=== PATIENT | male | born 1975 | race Caucasian/White ===

== ENCOUNTER 2018-09-17 06:46 | Emergency (ER) | payer BC, OTHER ==
[2018-09-17 06:52] VITALS: TEMP 98.1
[2018-09-17] MEDS ORDERED: IPRATROPIUM-ALBUTEROL 3 ML NEB INHALATION STA (07:15)
--- NOTE | 2018-09-17 07:21 | ED ---
URI HPI - General Chief Complaint: Upper Respiratory Infection Stated Complaint: SOB Time Seen by Provider: 09/17/18 07:01 Source: patient, RN notes reviewed Mode of arrival: ambulatory Limitations: no limitations - History of Present Illness Initial Comments: 43-year-old presents emergency Department chief complaint of cough and shortness breath. Patient states he notices any increasing cough and slight wheezing last 24 hours. Patient states that he has no history of asthma or COPD. Patient is exposed multiple sick contacts at his job. Patient reports no fever or chills no bodyaches no nasal congestion. Patient has no chest pain. Patient states that symptoms are slightly better at this time some noticeable. - Related Data Home Medications Medication Instructions Recorded Confirmed Lisinopril [Prinivil] 10 mg PO HS 04/08/16 09/17/18 Metoprolol Succinate (ER) [Toprol 25 mg PO DAILY 09/17/18 09/17/18 Xl] Previous Rx's Medication Instructions Recorded Albuterol Sulfate [Proair Hfa] 1 - 2 puff INHALATION Q4HR PRN #1 09/17/18 inhaler Azithromycin [Zithromax Z-pack] 0 mg PO DIRECTED #1 pack 09/17/18 predniSONE 50 mg PO DAILY #5 tab 09/17/18 Allergies Allergy/AdvReac Type Severity Reaction Status Date / Time latex Allergy Rash/Hives Verified 09/17/18 07:26 Penicillins Allergy Unknown Verified 09/17/18 07:25 Review of Systems ROS Statement: Those systems with pertinent positive or pertinent negative responses have been documented in the HPI. ROS Other: All systems not noted in ROS Statement are negative. Past Medical History Past Medical History: Hypertension History of Any Multi-Drug Resistant Organisms: None Reported Past Surgical History: No Surgical Hx Reported Past Psychological History: No Psychological Hx Reported Smoking Status: Never smoker Past Alcohol Use History: Daily Past Drug Use History: None Reported General Exam Limitations: no limitations General appearance: alert, in no apparent distress Head exam: Present: atraumatic, normocephalic, normal inspection Eye exam: Present: normal appearance, PERRL, EOMI. Absent: scleral icterus, conjunctival injection, periorbital swelling ENT exam: Present: normal exam, normal oropharynx, mucous membranes moist Neck exam: Present: normal inspection. Absent: tenderness, meningismus, lymphadenopathy Respiratory exam: Present: wheezes. Absent: normal lung sounds bilaterally, respiratory distress, rales, rhonchi, stridor Cardiovascular Exam: Present: regular rate, normal rhythm, normal heart sounds. Absent: systolic murmur, diastolic murmur, rubs, gallop, clicks Neurological exam: Present: alert, oriented X3, CN II-XII intact Skin exam: Present: warm, dry, intact, normal color. Absent: rash Course Vital Signs 09/17/18 09/17/18 09/17/18 06:49 06:57 07:34 Temperature 98.1 F Pulse Rate 81 78 Respiratory 20 20 Rate Blood Pressure 150/101 O2 Sat by Pulse 98 Oximetry 09/17/18 07:42 Temperature Pulse Rate 82 Respiratory Rate Blood Pressure O2 Sat by Pulse Oximetry Medical Decision Making - Medical Decision Making 43-year-old male presents from for shortness of breath. Patient had chest x-ray which showed possibility of a mass and infiltrate. Patient had CT labwork at this time which shows evidence of lipoma along with acute bronchitis changes on CT. Patient be treated accordingly with antibiotics, steroids and inhaler patient will follow-up with PCP and return for any worsening symptoms - Lab Data Result diagrams: 09/17/18 08:30 09/17/18 08:30 Lab Results 09/17/18 09/17/18 09/17/18 Range/Units 08:30 08:30 08:30 WBC 5.9 (3.8-10.6) k/uL RBC 5.01 (4.30-5.90) m/uL Hgb 14.9 (13.0-17.5) gm/dL Hct 44.5 (39.0-53.0) % MCV 88.8 (80.0-100.0) fL MCH 29.7 (25.0-35.0) pg MCHC 33.5 (31.0-37.0) g/dL RDW 13.4 (11.5-15.5) % Plt Count 219 (150-450) k/uL Neutrophils % 69 % Lymphocytes % 19 % Monocytes % 6 % Eosinophils % 4 % Basophils % 1 % Neutrophils # 4.0 (1.3-7.7) k/uL Lymphocytes # 1.1 (1.0-4.8) k/uL Monocytes # 0.3 (0-1.0) k/uL Eosinophils # 0.3 (0-0.7) k/uL Basophils # 0.0 (0-0.2) k/uL PT 10.1 (9.0-12.0) sec INR 0.9 (<1.2) APTT 25.2 (22.0-30.0) sec Sodium 140 (137-145) mmol/L Potassium 4.4 (3.5-5.1) mmol/L Chloride 109 H (98-107) mmol/L Carbon Dioxide 21 L (22-30) mmol/L Anion Gap 10 mmol/L BUN 14 (9-20) mg/dL Creatinine 0.85 (0.66-1.25) mg/dL Est GFR (CKD-EPI)AfAm >90 (>60 ml/min/1.73 sqM) Est GFR (CKD-EPI)NonAf >90 (>60 ml/min/1.73 sqM) Glucose 114 H (74-99) mg/dL Calcium 9.4 (8.4-10.2) mg/dL Disposition Clinical Impression: Acute bronchitis with bronchospasm Disposition: HOME SELF-CARE Condition: Stable Instructions (If sedation given, give patient instructions): Acute Bronchitis (ED) Additional Instructions: Please return to the Emergency Department if symptoms worsen or any other concerns. Prescriptions: predniSONE 50 mg PO DAILY #5 tab Albuterol Sulfate [Proair Hfa] 1 - 2 puff INHALATION Q4HR PRN #1 inhaler PRN Reason: difficulty in breathing Azithromycin [Zithromax Z-pack] 0 mg PO DIRECTED #1 pack Is patient prescribed a controlled substance at d/c from ED?: No Referrals: Mati Kevin MD [Primary Care Provider] - 1-2 days Time of Disposition: 09:37
--- NOTE | 2018-09-17 07:49 | XR ---
EXAMINATION TYPE: XR chest 2V DATE OF EXAM: 09/17/2018 COMPARISON: NONE TECHNIQUE: PA and lateral views submitted. HISTORY: Cough and pain FINDINGS: No pneumothorax or pleural effusion. Patchy subsegmental changes are seen in the right lower lobe med ially. Infiltrate not excluded. Upper mediastinum is prominent. Subsegmental changes at both lung bas es. No overt failure. Hypertrophic change of the spine. Lateral views demonstrates a 3 mm nodule over lying the thoracic vertebral column. Finding nonspecific. IMPRESSION: 1. Upper soft tissue mediastinal prominence. Recommend CT of the chest. 2. 3 mm pulmonary nodule in the lateral view overlying the vertebral column too small to characterize . 3. Patchy subsegmental consolidation at the medial aspect of the right lung base. Early infiltrate no t excluded.
[2018-09-17 08:52] LABS: Basophils % (A) 1 %; Eosinophils # (A) 0.3 k/uL (0-0.7); Eosinophils % (A) 4 %; HCT 44.5 % (39.0-53.0); HGB 14.9 gm/dL (13.0-17.5); INR 0.9 (<1.2); Lymphocytes # (A) 1.1 k/uL (1.0-4.8); Lymphocytes % (A) 19 %; MCH 29.7 pg (25.0-35.0); MCHC 33.5 g/dL (31.0-37.0); MCV 88.8 fL (80.0-100.0); Mean Platelet Volume 6.8; Monocytes # (A) 0.3 k/uL (0-1.0); Monocytes % (A) 6 %; Neutrophils % (A) 69 %; Partial Thromboplastin Time 25.2 sec (22.0-30.0); Platelet Count 219 k/uL (150-450); Prothrombin Time 10.1 sec (9.0-12.0); RBC 5.01 m/uL (4.30-5.90); RDW 13.4 % (11.5-15.5); WBC 5.9 k/uL (3.8-10.6)
[2018-09-17 09:05] LABS: Anion Gap 10 mmol/L; Blood Urea Nitrogen 14 mg/dL (9-20); Calcium 9.4 mg/dL (8.4-10.2); Carbon Dioxide 21 mmol/L (22-30); Chloride 109 mmol/L (98-107); Glucose 114 mg/dL (74-99); Potassium 4.4 mmol/L (3.5-5.1); Sodium 140 mmol/L (137-145)
--- NOTE | 2018-09-17 09:17 | CT ---
EXAMINATION TYPE: CT chest angio for PE DATE OF EXAM: 09/17/2018 COMPARISON: Radiograph same day HISTORY: 43-year-old male with pain, Shortness of breath, wheezing and cough TECHNIQUE: Contiguous axial scanning of the chest performed with IV Contrast, patient injected with 1 00 mL of Isovue 300. Coronal/sagittal MIP reconstructions performed. CT DLP: 657.3 mGycm Automated exposure control for dose reduction was used. FINDINGS: Heart upper limits of normal in size without pericardial effusion. Aorta normal caliber with variant direct takeoff of the left vertebral artery directly from the aorti c arch. There is prominent mediastinal fat suggesting mediastinal lipomatosis accounting for the widened appe arance of the mediastinum on radiographs. There is a 9 mm borderline sized right infrahilar/bronchial lymph node which is nonspecific, probably reactive/post inflammatory. Otherwise, no thoracic lymphadenopathy seen. There are breathing motion artifacts with satisfactory opacification of the pulmonary arterial system no definite pulmonary embolus is seen. Some strandy atelectasis at the lung bases and mild deep atelectasis. No consolidation or pleural eff usion. Prominent epicardial fat pad at the cardiac apex seems to account for the density on radiograp hs. Visualized upper abdomen shows a hilar splenule in possible underlying fatty infiltration of the live r. Bones: No osseous destructive process. IMPRESSION: 1. MILD RESPIRATORY MOTION ARTIFACT. NO DEFINITE PULMONARY EMBOLUS. 2. MEDIASTINAL LIPOMATOSIS ACCOUNTING FOR THE WIDENED APPEARANCE OF THE MEDIASTINUM ON RADIOGRAPHS. 3. PROMINENT EPICARDIAL FAT PAD ALONG THE CARDIAC APEX ACCOUNTING FOR THE RADIOGRAPHIC DENSITY. 4. MILD BRONCHIAL WALL THICKENING COULD REFLECT BRONCHITIS OR ASTHMA. OTHERWISE, NO ACUTE PULMONARY P ROCESS SEEN.
[2018-09-17 10:02] VITALS: BP 131/98; PULSE 80; RESP 18
== END 2018-09-17 10:02 | disposition home or self-care (01) ==
LOC: EC 06:46
DX: J20.9 Acute bronchitis, unspecified (principal); D17.9 Benign lipomatous neoplasm, unspecified; I10 Essential (primary) hypertension; Z79.899 Other long term (current) drug therapy; Z88.0 Allergy status to penicillin; Z91.040 Latex allergy status
CPT/HCPCS: 36415; 71046; 71275; 80048; 85025; 85610; 85730; 94640; 99285

== ENCOUNTER 2020-08-18 09:41 | Emergency (ER) | payer BC ==
[2020-08-18 09:49] VITALS: RESP 18
[2020-08-18] MEDS ORDERED: BACITRACIN OINT 1 EACH PACKET TOPICAL ONE (10:11)
[2020-08-18] MEDS ORDERED: LIDOCAINE 1% INJ 10MG/ML (20 ML MDV) SQ ONE (10:11)
[2020-08-18] MEDS ORDERED: DIPH,PERTUS(ACELL)TETVAC-LF 0.5 ML VIAL IM ONE (10:39)
--- NOTE | 2020-08-18 11:08 | ED ---
Wound/Laceration HPI - General Chief Complaint: Wound/Laceration Stated Complaint: hand lac Source: patient Mode of arrival: ambulatory Limitations: no limitations - History of Present Illness Initial Comments: 45 -year-old male patient presents to the emergency department today for evaluation of laceration to the left thumb and palm of the left hand. Patient states that he was walking with a glass bolus and when he tripped and fell. States about elbow causing a laceration. Denies hitting his head or losing consciousness with the fall. Denies any neck or back pain. Denies numbness or tingling to the hand. Denies any concern for bony injury. His insurance last tetanus vaccine was given. Patient denies any headache, neck pain, back pain, chest pain, shortness of breath, dizziness, weakness, abdominal pain, nausea, vomiting, or difficulties with bowel movements or urination. - Related Data Home Medications Medication Instructions Recorded Confirmed Lisinopril [Prinivil] 10 mg PO DAILY 04/08/16 08/18/20 Metoprolol Succinate (ER) [Toprol 25 mg PO HS 09/17/18 08/18/20 Xl] Allergies Allergy/AdvReac Type Severity Reaction Status Date / Time latex Allergy Rash/Hives Verified 08/18/20 10:18 Penicillins Allergy Unknown Verified 08/18/20 10:18 Review of Systems ROS Statement: Those systems with pertinent positive or pertinent negative responses have been documented in the HPI. ROS Other: All systems not noted in ROS Statement are negative. Past Medical History Past Medical History: Hypertension History of Any Multi-Drug Resistant Organisms: None Reported Past Surgical History: No Surgical Hx Reported Past Psychological History: No Psychological Hx Reported Smoking Status: Never smoker Past Alcohol Use History: Daily Past Drug Use History: None Reported General Exam Limitations: no limitations General appearance: alert, in no apparent distress, other (This is a well developed, well nourished adult male patient in no acute distress. Vital signs upon presentation are temperature 98.5, pulse 84, resp 18, blood pressure 170/104, pulse ox 100% on room air.) Respiratory exam: Present: normal lung sounds bilaterally. Absent: respiratory distress, wheezes, rales, rhonchi, stridor Cardiovascular Exam: Present: regular rate, normal rhythm, normal heart sounds. Absent: systolic murmur, diastolic murmur, rubs, gallop, clicks Extremities exam: Present: full ROM, normal capillary refill, other (There is 7cm laceration noted to the left thumb, active bleeding noted. 2cm laceration to the hypothenar eminence of the left palm. Skin is otherwise pink, warm, dry. Patient exhibits full range of motion with without resistance. Radial pulses 2+ and equal bilaterally.). Absent: normal inspection, tenderness, pedal edema, joint swelling, calf tenderness Neurological exam: Present: alert, oriented X3, CN II-XII intact Psychiatric exam: Present: normal affect, normal mood Skin exam: Present: warm, dry, intact, normal color. Absent: rash Course Vital Signs 08/18/20 09:42 Temperature 98.5 F Pulse Rate 84 Respiratory 18 Rate Blood Pressure 170/104 O2 Sat by Pulse 100 Oximetry Procedures - Laceration Laceration #1 Consent Obtained: verbal consent Indication: laceration Site: hand (left thumb) Size (cm): 7 Description: linear Depth: simple, single layer Anesthetic Used: lidocaine 1% Anesthesia Technique: local infiltration Amount (mls): 4 Pre-repair: wound explored, irrigated extensively Type of Sutures: nylon Size of Sutures: 5-0 Number of Sutures: 9 Patient Tolerated Procedure: well, no complications Laceration #2 Consent Obtained: verbal consent Indication: laceration Site: hand (left palm) Size (cm): 2 Depth: simple, single layer Anesthesia Technique: local infiltration Amount (mls): 2 Pre-repair: irrigated extensively Type of Sutures: nylon Size of Sutures: 5-0 Number of Sutures: 2 Technique: simple, interrupted Patient Tolerated Procedure: well, no complications Medical Decision Making - Medical Decision Making 45 year-old male patient presented to the emergency department today for evaluation of left palm and left thumb laceration. Physical examination did reveal 7 cm laceration to the left thumb and a 2 cm laceration to the left palm. There is active bleeding noted. Wounds were cleansed and inspected and no signs of foreign body. Patient was given tetanus vaccine. Laceration was repaired as documented. We discharged from the primary care physician for recheck in 1-2 days. He is instructed to return in 7 days to have the stitches removed. She can regarding wound care and signs or symptoms of infection. Return parameters were discussed in detail. He verbalizes understanding and agrees with this plan. Case discussed with my attending Dr. Lugo. Disposition Clinical Impression: Laceration of left thumb, Laceration of left hand Disposition: HOME SELF-CARE Condition: Good Instructions (If sedation given, give patient instructions): Care For Your Stitches (ED), Laceration (ED) Additional Instructions: Keep wound clean and dry. Cleanse twice daily with warm water and antibacterial soap. Monitor for signs or symptoms of infection including but not limited to redness, swelling, drainage of pus, fever, or chills. Return to the emergency department for any new, worsening, or concerning symptoms. Is patient prescribed a controlled substance at d/c from ED?: No Referrals: Mati Kevin MD [Primary Care Provider] - 1-2 days Time of Disposition: 11:08
[2020-08-18 11:27] VITALS: BP 139/88; PULSE 76; TEMP 97.6
== END 2020-08-18 11:27 | disposition home or self-care (01) ==
LOC: EC 09:41
DX: S61.012A Laceration without foreign body of left thumb without damage to nail, initial encounter (principal); Z23 Encounter for immunization; I10 Essential (primary) hypertension; Z79.899 Other long term (current) drug therapy; Z88.0 Allergy status to penicillin; W01.0XXA Fall on same level from slipping, tripping and stumbling without subsequent striking against object, initial encounter
CPT/HCPCS: 90715; 99283; 12004; 90471; J2001

== ENCOUNTER → 2021-07-06 | Outpatient (CLI) | payer BC ==
--- NOTE | 2021-07-06 13:01 | US ---
EXAMINATION TYPE: US thyroid st tissue head/neck DATE OF EXAM: 07/06/2021 COMPARISON: NONE CLINICAL HISTORY: R22.0 SWELLING,MASS. neck swelling GLAND SIZE: Right Lobe: 4.9 x 1.7 x 2.5 cm Overall Parenchyma: homogenous Left Lobe: 4.6 x 1.6 x 2.0 cm Overall Parenchyma: homogeneous Isthmus Thickness: 0.5 cm NODULES RIGHT: # of nodules measured on right: 0 LEFT: # of nodules measured on left: 0 ISTHMUS: # of nodules measured in the isthmus: 0 Bilateral neck scanned, no evidence of lymphadenopathy. IMPRESSION: 1. Normal-appearing thyroid ultrasound.
== END | disposition home or self-care (01) ==
LOC: RADUSWWP 12:26
PROVIDERS: ATTEND Internal Medicine
DX: R22.1 Localized swelling, mass and lump, neck (principal)
CPT/HCPCS: 76536

== ENCOUNTER 2021-09-03 18:51 | Emergency (ER) | payer BC ==
[2021-09-03 20:28] LABS: ALT 45 U/L (4-49); AST 39 U/L (17-59); African American GFR (CKD) >90 (>60 ml/min/1.73 sqM); Albumin 4.6 g/dL (3.5-5.0); Alkaline Phosphatase 59 U/L (38-126); Anion Gap 8 mmol/L; Basophils # (A) 0.1 k/uL (0-0.2); Basophils % (A) 1 %; Blood Urea Nitrogen 20 mg/dL (9-20); Calcium 9.2 mg/dL (8.4-10.2); Carbon Dioxide 20 mmol/L (22-30); Chloride 108 mmol/L (98-107); Eosinophils # (A) 0.1 k/uL (0-0.7); Eosinophils % (A) 1 %; Glucose 126 mg/dL (74-99); Lymphocytes # (A) 1.3 k/uL (1.0-4.8); Lymphocytes % (A) 15 %; MCH 31.4 pg (25.0-35.0); MCHC 34.1 g/dL (31.0-37.0); MCV 92.1 fL (80.0-100.0); Mean Platelet Volume 6.9; Monocytes # (A) 0.6 k/uL (0-1.0); Monocytes % (A) 7 %; Neutrophils # (A) 6.2 k/uL (1.3-7.7); Neutrophils % (A) 74 %; Non-African American GFR(CKD) >90 (>60 ml/min/1.73 sqM); Platelet Count 225 k/uL (150-450); Potassium 4.3 mmol/L (3.5-5.1); RDW 14.1 % (11.5-15.5); Sodium 136 mmol/L (137-145); Total Bilirubin 0.6 mg/dL (0.2-1.3); Total Protein 7.6 g/dL (6.3-8.2); WBC 8.5 k/uL (3.8-10.6)
[2021-09-03 20:34] LABS: INR 0.9 (<1.2); Partial Thromboplastin Time 24.5 sec (22.0-30.0); Prothrombin Time 10.2 sec (9.0-12.0)
--- NOTE | 2021-09-03 20:41 | XR ---
EXAMINATION TYPE: XR chest 2V DATE OF EXAM: 09/03/2021 8:13 PM COMPARISON:Chest radiographs from 09/17/2018 TECHNIQUE: XR chest 2V Frontal and lateral views of the chest. CLINICAL INDICATION:Male, 46 years old with history of difficulty breathing; FINDINGS: Lungs/Pleura: There is no evidence of pleural effusion, focal consolidation, or pneumothorax. Pulmonary vascularity: Unremarkable. Heart/mediastinum: Cardiomediastinal silhouette is unremarkable. Musculoskeletal: No acute osseous pathology. IMPRESSION: No acute cardiopulmonary disease/process.
--- NOTE | 2021-09-03 21:11 | ED ---
General Adult HPI - General Chief complaint: Shortness of Breath Stated complaint: QUINTIN/Dizziness Time Seen by Provider: 09/03/21 21:05 Source: patient Mode of arrival: ambulatory Limitations: no limitations - History of Present Illness Initial comments: Dictation was produced using [employer] dictation software. please excuse any grammatical, word or spelling errors. Chief Complaint: 46-year-old male presents to emergency department for episode of dizziness History of Present Illness: 46-year-old male who has past medical history of hypertension. States he's had 2 episodes of dizziness that lasted for a couple minutes. He states today he was at work when he began experiencing this. Satting come to the emergency department to be evaluated. No associated palpitations, shortness of breath. He has no pain complaints. Denies any numbness and paresthesias to the arms or legs. Since being in the emergency room is been asymptomatic. Patient does have good care with his private care doctor and follow-up. He does have an appointment in a couple weeks. The ROS documented in this emergency department record has been reviewed and confirmed by me. Those systems with pertinent positive or negative responses have been documented in the HPI. All other systems are other negative and/or noncontributory. PHYSICAL EXAM: General Impression: Alert and oriented x3, not in acute distress HEENT: Normocephalic atraumatic, extra-ocular movements intact, pupils equal and reactive to light bilaterally, mucous membranes moist. Cardiovascular: Heart regular rate and rhythm Chest: Able to complete full sentences, no retractions, no tachypnea Abdomen: abdomen soft, non-tender, non-distended, no organomegaly Musculoskeletal: Pulses present and equal in all extremities, no peripheral edema Motor: no focal deficits noted Neurological: CN II-XII grossly intact, no focal motor or sensory deficits noted Skin: Intact with no visualized rashes Psych: Normal affect and mood ED course: 46-year-old male presents emergency department for episode of dizziness. He is a symptomatically at the bedside. Vital signs are stable. EKG is unremarkable. Laboratory evaluation is unremarkable. Patient monitored in the emergency department for approximately 2 hours and 20 minutes. He is evaluated at the bedside at 9:10 PM finally stable medical condition. Patient discharged advised follow-up with primary care doctor. Return precautions discussed. EKG interpretation: Ventricular rate gait, sinus rhythm,. 154, QTC 2, QTc 386. No [place] prolongation, no QTC prolongation, no ST or T-wave changes noted. Overall, this EKG is unremarkable - Related Data Home Medications Medication Instructions Recorded Confirmed Lisinopril [Prinivil] 10 mg PO DAILY 04/08/16 08/18/20 Metoprolol Succinate (ER) [Toprol 25 mg PO HS 09/17/18 08/18/20 Xl] Allergies Allergy/AdvReac Type Severity Reaction Status Date / Time latex Allergy Rash/Hives Verified 09/03/21 19:33 Penicillins Allergy Unknown Verified 09/03/21 19:33 Review of Systems ROS Statement: Those systems with pertinent positive or pertinent negative responses have been documented in the HPI. ROS Other: All systems not noted in ROS Statement are negative. Past Medical History Past Medical History: Hypertension History of Any Multi-Drug Resistant Organisms: None Reported Past Surgical History: No Surgical Hx Reported Past Psychological History: No Psychological Hx Reported Smoking Status: Never smoker Past Alcohol Use History: Daily Past Drug Use History: None Reported General Exam Limitations: no limitations Course Vital Signs 09/03/21 19:28 Pulse Rate 94 Respiratory 18 Rate Blood Pressure 123/78 O2 Sat by Pulse 100 Oximetry Medical Decision Making - Lab Data Result diagrams: 09/03/21 20:06 09/03/21 20:06 Lab Results 09/03/21 09/03/21 09/03/21 Range/Units 20:06 20:06 20:06 WBC 8.5 (3.8-10.6) k/uL RBC 5.10 (4.30-5.90) m/uL Hgb 16.0 (13.0-17.5) gm/dL Hct 47.0 (39.0-53.0) % MCV 92.1 (80.0-100.0) fL MCH 31.4 (25.0-35.0) pg MCHC 34.1 (31.0-37.0) g/dL RDW 14.1 (11.5-15.5) % Plt Count 225 (150-450) k/uL MPV 6.9 Neutrophils % 74 % Lymphocytes % 15 % Monocytes % 7 % Eosinophils % 1 % Basophils % 1 % Neutrophils # 6.2 (1.3-7.7) k/uL Lymphocytes # 1.3 (1.0-4.8) k/uL Monocytes # 0.6 (0-1.0) k/uL Eosinophils # 0.1 (0-0.7) k/uL Basophils # 0.1 (0-0.2) k/uL PT 10.2 (9.0-12.0) sec INR 0.9 (<1.2) APTT 24.5 (22.0-30.0) sec Sodium 136 L (137-145) mmol/L Potassium 4.3 (3.5-5.1) mmol/L Chloride 108 H (98-107) mmol/L Carbon Dioxide 20 L (22-30) mmol/L Anion Gap 8 mmol/L BUN 20 (9-20) mg/dL Creatinine 0.88 (0.66-1.25) mg/dL Est GFR (CKD-EPI)AfAm >90 (>60 ml/min/1.73 sqM) Est GFR (CKD-EPI)NonAf >90 (>60 ml/min/1.73 sqM) Glucose 126 H (74-99) mg/dL Calcium 9.2 (8.4-10.2) mg/dL Total Bilirubin 0.6 (0.2-1.3) mg/dL AST 39 (17-59) U/L ALT 45 (4-49) U/L Alkaline Phosphatase 59 (38-126) U/L Troponin I (0.000-0.034) ng/mL Total Protein 7.6 (6.3-8.2) g/dL Albumin 4.6 (3.5-5.0) g/dL 09/03/21 Range/Units 20:06 WBC (3.8-10.6) k/uL RBC (4.30-5.90) m/uL Hgb (13.0-17.5) gm/dL Hct (39.0-53.0) % MCV (80.0-100.0) fL MCH (25.0-35.0) pg MCHC (31.0-37.0) g/dL RDW (11.5-15.5) % Plt Count (150-450) k/uL MPV Neutrophils % % Lymphocytes % % Monocytes % % Eosinophils % % Basophils % % Neutrophils # (1.3-7.7) k/uL Lymphocytes # (1.0-4.8) k/uL Monocytes # (0-1.0) k/uL Eosinophils # (0-0.7) k/uL Basophils # (0-0.2) k/uL PT (9.0-12.0) sec INR (<1.2) APTT (22.0-30.0) sec Sodium (137-145) mmol/L Potassium (3.5-5.1) mmol/L Chloride (98-107) mmol/L Carbon Dioxide (22-30) mmol/L Anion Gap mmol/L BUN (9-20) mg/dL Creatinine (0.66-1.25) mg/dL Est GFR (CKD-EPI)AfAm (>60 ml/min/1.73 sqM) Est GFR (CKD-EPI)NonAf (>60 ml/min/1.73 sqM) Glucose (74-99) mg/dL Calcium (8.4-10.2) mg/dL Total Bilirubin (0.2-1.3) mg/dL AST (17-59) U/L ALT (4-49) U/L Alkaline Phosphatase (38-126) U/L Troponin I <0.012 (0.000-0.034) ng/mL Total Protein (6.3-8.2) g/dL Albumin (3.5-5.0) g/dL Disposition Clinical Impression: Dizziness Disposition: HOME SELF-CARE Condition: Good Instructions (If sedation given, give patient instructions): Dizziness (ED) Is patient prescribed a controlled substance at d/c from ED?: No Referrals: Mati Kevin MD [Primary Care Provider] - 1-2 days
[2021-09-03 21:24] VITALS: BP 142/85; PULSE 77; RESP 20; TEMP 98.4
== END 2021-09-03 21:27 | disposition home or self-care (01) ==
LOC: EC 18:51
DX: R42 Dizziness and giddiness (principal); I10 Essential (primary) hypertension; Z88.0 Allergy status to penicillin; Z91.040 Latex allergy status
CPT/HCPCS: 36415; 71046; 80053; 84484; 85025; 85610; 85730; 99285

== ENCOUNTER 2023-10-16 10:44 | Day surgery (SDC) | payer BC ==
[2023-10-15 08:31] VITALS: BMI 36.0
[2023-10-16] MEDS: LACTATED RINGERS 1,000 ML IV SCH (11:04)
[2023-10-16] MEDS ORDERED: PROPOFOL 10 MG/ML 20 ML VIAL IV ONE (11:18)
[2023-10-16] MEDS ORDERED: LIDOCAINE 1% INJ 10MG/ML (20 ML MDV) ONE (11:18)
--- NOTE | 2023-10-16 11:22 | P.GSHP ---
History of Present Illness H&P Date: 10/16/23 Chief Complaint: Colon cancer screening 48-year-old male here for colonoscopy. He has not had one previously. No bowel complaints. No family history of colon cancer. Past Medical History Past Medical History: Hypertension, Thyroid Disorder History of Any Multi-Drug Resistant Organisms: None Reported Past Surgical History: No Surgical Hx Reported Past Anesthesia/Blood Transfusion Reactions: No Reported Reaction Additional Past Anesthesia/Blood Transfusion Reaction / Comment(s): no hx of anesthesia Smoking Status: Never smoker - Past Family History Father Family Medical History: No Reported History Mother Family Medical History: Cancer Additional Family Medical History / Comment(s): lung Medications and Allergies Home Medications Medication Instructions Recorded Confirmed Type lisinopriL [Prinivil] 20 mg PO QAM 04/08/16 10/16/23 History Metoprolol Succinate (ER) [Toprol 25 mg PO HS 09/17/18 10/16/23 History Xl] Levothyroxine Sodium [Synthroid] 25 mcg PO QAM 10/15/23 10/16/23 History Allergies Allergy/AdvReac Type Severity Reaction Status Date / Time latex Allergy Rash/Hives Verified 10/16/23 11:02 Penicillins Allergy Unknown Verified 10/16/23 11:02 Surgical - Exam Vital Signs Temp Pulse Resp BP Pulse Ox 97 F L 83 16 143/78 97 10/16/23 11:12 10/16/23 11:12 10/16/23 11:12 10/16/23 11:12 10/16/23 11:12 Physical exam: General: Well-developed, well-nourished HEENT: Normocephalic, sclerae nonicteric Abdomen: Nontender, nondistended Extremities: No edema Neuro: Alert and oriented Assessment and Plan (1) Colon cancer screening Narrative/Plan: Will proceed with colonoscopy at this time. Current Visit: Yes Status: Acute Code(s): Z12.11 - ENCOUNTER FOR SCREENING FOR MALIGNANT NEOPLASM OF COLON SNOMED Code(s): 990880940
--- NOTE | 2023-10-16 11:37 | P.PCN ---
Date of Procedure: 10/16/23 Procedure(s) Performed: PREOPERATIVE DIAGNOSIS: Colon cancer screening POSTOPERATIVE DIAGNOSIS: Ascending colon polyp, small internal hemorrhoids PROCEDURE: Colonoscopy with snare polypectomy ANESTHESIA: MAC SURGEON: Syed Ramey M.D. SPECIMENS: Ascending colon polyp ENDOSCOPIC PROCEDURE: The patient was placed on the endoscopy table in the left decubitus position. The Olympus colonoscope was inserted into the anus and passed under direct visualization to the base of the cecum. The appendiceal madalyn fice was visualized. From that point the scope was slowly withdrawn inspecting all surfaces carefully. There were no neoplastic inflammatory or polypoid lesions throughout the cecum. In the ascending colon a small polyp was identified and removed with a snare cautery technique. The remainder of the ascending transverse descending sigmoid and rectum appeared normal. There was no visible diverticulosis. The patient had small internal hemorrhoids noted. Digital rectal examination was normal. The patient was taken to the recovery room in stable condition per anesthesia guidelines. RECOMMENDATIONS: Await biopsy results. Anticipate repeat colonoscopy 5 to 7 years. Will contact patient with pathology results.
[2023-10-16 11:50] VITALS: TEMP 97
[2023-10-16 12:34] VITALS: BP 103/69; PULSE 77; RESP 18
== END 2023-10-16 12:10 | disposition home or self-care (01) ==
LOC: ORWHC2ENDO 10:44
PROVIDERS: ATTEND Surgery
DX: Z12.11 Encounter for screening for malignant neoplasm of colon (principal); D12.2 Benign neoplasm of ascending colon; K64.8 Other hemorrhoids; I10 Essential (primary) hypertension; E07.9 Disorder of thyroid, unspecified; Z79.890 Hormone replacement therapy; Z79.899 Other long term (current) drug therapy; Z88.0 Allergy status to penicillin; Z91.040 Latex allergy status
CPT/HCPCS: 88305; 45385; J2001; J2704